=== PATIENT | female | born 1995 ===

== ENCOUNTER 2024-03-06 11:23 | Outpatient (AMB) | payer OTHER, SELFPAY ==
[2024-03-06 11:37] VITALS: BP 135/82; PULSE 76; RESP 18; TEMP 36.8; O2SAT 98; BMI 28.8
--- NOTE | 2024-03-06 11:37 | PD.RESCLINIC ---
Vital Signs 03/06/24 11:37 Height 1.65 m Height Method Stated Weight 78.698 kg Weight Measurement Method Standing Scale BMI 28.8 BP 135/82 H Blood Pressure Source Automatic Cuff Blood Pressure Location Left Upper Arm Position Sitting Respiration 18 Pulse 76 Pulse Source Monitor Temp 98.2 F Temp Source Oral Pulse Oximetry (%) 98 Oxygen Delivery Method Room Air Allergies/Meds Allergies & Medications Allergies No Known Allergies Allergy (Verified 03/06/24 13:59) Medication Reconciliation No Known Home Medications 03/06/24 [History Confirmed 03/06/24] MA Intake Visit Data Collection New Patient or Established: Established Patient (seen at [facility] within 3 years) Seen by Clinical Staff ONLY (RN/MA): No Pain scale:: 0 Pain Scale Used: Novak-Boo/Numerical Painter Tumbling Barrel Required: No PCP or OBGYN visit in last 3 months: No Hx Now: No Do You Feel Safe at Home: Yes Authorities Contacted: N/A Smoking Status Smoking Status: Never smoker Immunization / Flu Flu Vaccine in the Last 12 Months: No Flu Vaccine Exclusion Criteria: No Exclusion Criteria Past Medical History Social History SMOKING STATUS: Smoking status: Never smoker ALCOHOL: Alcohol Intake: Current ALCOHOL FREQUENCY: Alcohol Intake Frequency: A Few Times a Month ALCOHOL LAST INTAKE: Last drink: Days (ago) (7) HOUSING: Housing: House Past Medical History Comments PMH COMMENT: PMH: Depression PSH: None SH: None Allergies:?None Medications: None Patient Portal Questionaires PHQ-9 PHQ-2 Over the last 2 weeks, how often have you been bothered by any of the following problems? 1. Little interest or pleasure in doing things: nearly every day 2. Feeling down, depressed, or hopeless: more than half the days Total score: 5 PHQ-9 3. Trouble falling or staying asleep, or sleeping too much: Not at all 4. Feeling tired or having little energy: Nearly every day 5. Poor appetite or overeating: Nearly every day 6. Feeling bad about yourself - or that you are a failure or have let yourself or your family down: Nearly every day 7. Trouble concentrating on things, such as reading the newspaper or watching television: Nearly every day 8. Moving or speaking so slowly that other people could have noticed? - Or the opposite - being so fidgety or restless that you have been moving around a lot more than usual: nearly every day 9. Thoughts that you would be better off or of hurting yourself in some way: Not at all Total score: 20.0 If you checked off any problems, how difficult have these problems made it for you to do your work, take care of things at home, or get along with other people?: very difficult Source: Developed by Drs. Yosef Car, Sharron Fernando, Yunior Sinha and colleagues, with an educational bel from [employer]. Depression screen completed yes Social History Living Situation History Marital Status: Single Lives With: Family Housing: House Tobacco History Smoking Status: Never smoker Alcohol History Alcohol Intake: Current Alcohol Intake Frequency: A Few Times a Month Last Drank: Days (ago) (7) Substance Use History Substance Use: None Domestic Abuse History Do You Feel Safe at Home: Yes Review of Systems Report any current symptoms Only answer those that you have currently: Digestive System nausea: Yes (Associated with anxiety) Past Medical History Past Medical History Have you ever been diagnosed with any of the following: History of Present Illness HPI Narrative 28 y/o F with PMHx significant for depression (untreated for 2+ years) presented to clinic for pre-employment physical. Patient does not have a PCP. Patient denies fevers, chills, SOB, chest pain, nausea, vomiting, headaches, weakness, lethargy. Endorses anxiety, upon further question patient determined to have severe depression according to PHQ-9 assessment. Patient has tried Luxapro in past without any benefit. Patient willing to try medications again. Review of Systems Review of Systems Systems Reviewed: All systems reviewed, normal except as documented Gastrointestinal Gastrointestinal: Reports nausea (Associated with anxiety) Objective/Exam Narrative Physical exam: PE: Gen: Well-developed and well-nourished. HEENT: NCAT, PERRLA, EOMI, MMM, anicteric conjunctivae. CVS: normal S1 and S2. RRR. No M/R/G. Resp: CTA B/L. No rhonchi, rales, crackles or wheezing. Abd: soft, non-tender, non-distended. MSK: Good ROM in BUE & BLE. No edema or rash. Neuro: CN II-XII grossly intact. Strength 5/5 in BUE & BLE. Alert and oriented x3. Psych: appropriate mood and affect. Assessment & Plan Diagnosis / Problem List (1) Encounter for physical examination of student: Assessment & Plan: Cleared for program Plan: Physical form completed (2) Major depression, chronic: Status: Acute Assessment & Plan: Patient meets criteria for severe major depression according to PHQ-9. Has tried Luxapro in the past without benefit. -Will prescribe Paxil 30mg PO daily -Follow-up appointment in 1 month Additional Assessment Attending note: I, Ender Roberts MD, attest that I was physically present for the espinosa portions of the service and evaluated the patient with the resident and I reviewed and discussed the case with the resident and agree with the resident's findings and plans of care as documented above. New patient to clinic. Here for [employer] physical, completed, no issues for this. However, in taking history, patient reporting symptoms of depression that has been untreated for 2 years. Has previously been on Lexapro, but apparently did not get much benefit from this. Patient willing to try medication again. We will start patient on Paxil 20 mg daily. Follow-up in 3 to 4 weeks. Ender Roberts MD Physician Billing New Patient New Patient: E/M Level 2-CPT 13709 New Patient ICPM New Patient ICPM: E/M 18-39 yrs-CPT 46616 Office Procedures [facility] Level of Care Nursing/Assessment Patient Status: Established Patient Nursing Assessment/Reassessment: Medication Reconciliation, Update PMH in EMR and Vital Signs Coordination of Care: Complex Care and Chronic Disease 1-5, Consent,records obtained, informed consent, Education Simp Pt/Fam and Staff clarify orders Established Patient Charge Established Patient Point Assignment: 85 Established Patient Point Charge: EP Level 3 (80-115)
== END 2024-03-06 12:24 | disposition home or self-care (01) ==
LOC: HODAHC 11:23
PROVIDERS: Supervising Provider Internal Medicine; Visit Provider Internal Medicine
DX: Z02.0 Encounter for examination for admission to educational institution (principal); F32.9 Major depressive disorder, single episode, unspecified
CPT/HCPCS: 99213; G0463